=== PATIENT | female | born 1955 | race Caucasian/White ===

== ENCOUNTER → 2016-08-15 | Outpatient (CLI) | payer OTHER ==
--- NOTE | 2016-08-15 11:01 | MA ---
Screening Digital Mammogram With iCAD Indication: Routine screening. Technique: Standard cephalocaudal and mediolateral oblique projections are obtained. This examinati on was processed with the iCAD computer-aided detection system. Comparison: August 2015, August 2014, August 2013, July 2012, and July 2011. Breast density: Type C. Findings: CAD was reviewed. No suspicious microcalcifications, mass, or architectural distortion. Impression: Negative mammogram. BI-RADS 1. Recommendation: Routine screening is recommended in one year, as long as physical examination is kimberlee ign in this patient with moderately dense breast parenchyma. [facility] will send a result letter to the patient. Negative mammography should not preclude additional workup of a clinically suspicious finding. The patient's information is entered into a reminder system with a target due date for her next mammo gram.
== END ==
LOC: FIMAGING 08:27
DX: Z12.31 Encounter for screening mammogram for malignant neoplasm of breast (principal)
CPT/HCPCS: G0202

== ENCOUNTER → 2017-08-19 | Outpatient (CLI) | payer OTHER | LOC: FIMAGING 09:07 | PROVIDERS: ATTEND Family Medicine | DX: Z12.31 Encounter for screening mammogram for malignant neoplasm of breast (principal) ==

== ENCOUNTER → 2018-08-20 | Outpatient (CLI) | payer OTHER | LOC: FIMAGING 09:05 | PROVIDERS: ATTEND Family Medicine | DX: Z12.31 Encounter for screening mammogram for malignant neoplasm of breast (principal) ==